=== PATIENT | female | born 1985 | race African-American/Black ===

== ENCOUNTER 2017-02-16 06:00 | Outpatient (CLI) | payer OTHER ==
[~2017-02-16] VITALS: Ht 167.6 cm; Wt 221.0 kg
[2017-02-16] MEDS ORDERED: ACET50TA PO (06:16)
[2017-02-16] MEDS ORDERED: PRENTAB9 PO (06:16)
[2017-02-16] MEDS ORDERED: TUMS500C PO (06:16)
== END 2017-02-16 07:00 | disposition home or self-care (01) ==
LOC: M LDO 06:00
PROVIDERS: ATTEND Obstetrics & Gynecology
DX: O47.03 False labor before 37 completed weeks of gestation, third trimester (principal); Z3A.33 33 weeks gestation of pregnancy; O30.043 Twin pregnancy, dichorionic/diamniotic, third trimester

== ENCOUNTER 2017-03-03 10:21 | Outpatient (CLI) | payer OTHER ==
[~2017-03-03] VITALS: Ht 170.2 cm; Wt 100.0 kg
[~2017-03-03 10:21] MED LIST: ACET50TA PO; PRENTAB9 PO; TUMS500C PO
[2017-03-03 10:49] VITALS: BP 126/56
[2017-03-03 13:44] VITALS: BP 106/58
== END 2017-03-03 14:20 | disposition home or self-care (01) ==
LOC: M LDO 10:21
PROVIDERS: ATTEND Student in an Organized Health Care Education/Training Program
DX: O47.03 False labor before 37 completed weeks of gestation, third trimester (principal); O30.043 Twin pregnancy, dichorionic/diamniotic, third trimester; Z3A.36 36 weeks gestation of pregnancy

== ENCOUNTER 2017-03-17 05:16 | Inpatient (IN) | payer OTHER ==
--- NOTE | 2017-03-02 16:51 | HPE ---
DATE OF ADMISSION: 03/17/2017 This lady is booked for elective repeat section and bilateral tubal ligation by Filesequiel clip for a satisfied parity. She is a 31-year-old 6 , para 2, LMP June 04, 2016, EDC March 31, 2017. HISTORY: Her past history is that she had a previous section in 2015 at 39 weeks of gestation because of breech presentation, 7 pounds 5 ounces. She had no progesterone. No monitoring. In September of 2014 at 39 weeks because of a short cervix and labor she had Indocin and progesterone. At that time she was in an AGD M1. She was on glyburide and an induction of labor at 39 weeks ; delivered a male, 8 pounds 11 ounces. This present history her risk factors are that she has diamniotic, dichorionic (YESICA) twins. She is AGD M1. She has had a previous section for breech and she has declined trial of labor after (TOLAC). Her lab values are O+, HIV negative, hepatitis negative, RPR negative, rubella immune. Varicella by lab was positive. Pap was normal. Urine was negative. Gonorrhea and chlamydia negative. 1-hour glucose was 128. GBS status is pending. PHYSICAL EXAMINATION: On physical examination today she is in no acute distress. She has a category one strip. She is normocephalic, atraumatic. Neck: Full range of motion. Pupils equal and reactive to light. Chest: Distal pulses are symmetric. No evidence of deep venous thrombosis (DVT), pulmonary embolism (PE) or superficial phlebitis. Lungs are clear bilaterally to bases. No wheezes or rhonchi. No CVA tenderness. Symphysis fundus height is 39. Twin A is breech with an MIGUEL A today of 11. Twin B was transverse lie with an MIGUEL A of 12. Both hearts are present and active, 140-150. The rest of the examination is unremarkable. She has no rashes, lesions or pruritus. No arthralgia or myalgia. No complaints of cough, wheezes, shortness of breath or dyspnea on exertion. No chest pain. She is not bleeding. Neuro complete. No incontinence, urgency or frequency. No nausea, vomiting, diarrhea or constipation. She has no diabetic issues. GYNECOLOGY HISTORY: Unremarkable. SURGICAL HISTORY: Primary section. FAMILY HISTORY: Noncontributory. SOCIAL HISTORY: She does not smoke, drink, abuse drugs and there is no domestic violence. After discussing risks and benefits of section, hemorrhage, infection, perforation, , reoperation, remote possibility of blood transfusion, remote possibility of hysterectomy; we then discussed the tubal ligation by Filshie clip with the failure rate of less than 1% ending in an IUP or an ectopic . Expressing understanding of both and all the risks, she signed and witnessed the consent form. Blood pressure today is 122/55. Symphysis fundus height is 38. She weighs 220 pounds. Her BMI is 34.46. In summary we have a diamniotic, dichorionic twin gestation for repeat section and satisfied parity. Edited: darian 03/22/2017 1101 MTDD
[~2017-03-17] VITALS: Ht 172.7 cm; Wt 99.8 kg
[2017-03-17] VITALS (11 sets, daily range): BP systolic 102–119; BP diastolic 50–57
[2017-03-17] MEDS ORDERED: BICITRA 30ML SOLN UDC PO ONE (05:30)
[2017-03-17] MEDS ORDERED: BUPIVACAINE HCL 0.25% 10 ML VIAL XX ONE (05:30)
[2017-03-17] MEDS ORDERED: ACETAMINOPHEN 650 MG SUPP PR ONE ×2 (05:30→08:00)
[2017-03-17] MEDS ORDERED: AZITHROMYCIN INJ 500 MG, VIAL MATE ADAPTER 1 EACH in D5W 250 ML IV ONE (05:30)
[2017-03-17] MEDS ORDERED: LR 1,000 ML IV ONE (05:30)
[2017-03-17] MEDS ORDERED: LR 1,000 ML IV SCH ×2 (05:30→10:00)
[2017-03-17 05:54] LABS: MEAN CORPUSCULAR HEMOGLOBIN 29.8 pg (27.0-33.0); MEAN CORPUSCULAR HGB CONC 32.5 g/dl (32.0-36.5); MEAN CORPUSCULAR VOLUME 91.8 fl (80.0-96.0); RED CELL DISTRIBUTION WIDTH 15.1 % (11.5-14.5); WHITE BLOOD COUNT 5.5 K/mm3 (4.0-10.0)
[2017-03-17] MEDS ORDERED: MORPHINE PRES-FREE INJ 10 MG/10 ML VIAL (J2274) As Ordered ONE (07:42)
[2017-03-17] MEDS ORDERED: NALOXONE INJ 0.4 MG/1 ML VIAL (J2310) IV PRN ×2 (07:53)
[2017-03-17] MEDS ORDERED: ONDANSETRON 4MG/2ML VIAL (J2405) IV PRN ×2 (07:53→10:00)
[2017-03-17] MEDS ORDERED: METOCLOPRAMIDE INJ 10MG/2ML VIAL (J2765) IV PRN (07:53)
[2017-03-17] MEDS ORDERED: BUPIVACAINE HCL 0.5% 10 ML VIAL SC ONE (08:00)
[2017-03-17] MEDS ORDERED: PHENYLephrine HCL 500 MCG/5 ML (100MCG/ML) SYRINGE (J2370) As Ordered ONE (08:38)
[2017-03-17] MEDS ORDERED: ePHEDrine SULFATE 25 MG/5 ML(5MG/ML) SYRINGE As Ordered ONE (08:38)
[2017-03-17] MEDS ORDERED: OXYTOCIN INJ 10 UNITS/ML VIAL (J2590) As Ordered ONE (08:38)
[2017-03-17] MEDS ORDERED: ONDANSETRON 4MG/2ML VIAL (J2405) As Ordered ONE (08:39)
[2017-03-17] MEDS ORDERED: KETOROLAC 60 MG/2 ML VIAL (J1885) As Ordered ONE (08:39)
[2017-03-17 08:52] LABS: CORD GAS ABE A -9.4; CORD GAS ABE V -5.2; CORD GAS HCO3 A 19.8 MEQ/L; CORD GAS HCO3 V 21.5 MEQ/L; CORD GAS O2 SAT A 62.6 %; CORD GAS O2 SAT V 72.4 %; CORD GAS PCO2 A 59.3 mmHg; CORD GAS PCO2 V 46.2 mmHg; CORD GAS PH A 7.142 UNITS; CORD GAS PH V 7.285 UNITS; CORD GAS PO2 A 31.3 mmHg; CORD GAS PO2 V 33.1 mmHg; CORD GAS SBC A 16.3 MEQ/L; CORD GAS SBC V 19.7 MEQ/L; CORD GAS TCO2 A 21.6 MEQ/L; CORD GAS TCO2 V 22.9 MEQ/L
[2017-03-17 08:55] LABS: CORD GAS ABE A -4.2; CORD GAS ABE V -5.3; CORD GAS HCO3 A 25.1 MEQ/L; CORD GAS O2 SAT A 30.5 %; CORD GAS O2 SAT V 82.6 %; CORD GAS PCO2 A 66.7 mmHg; CORD GAS PCO2 V 43.9 mmHg; CORD GAS PH A 7.193 UNITS; CORD GAS PH V 7.297 UNITS; CORD GAS PO2 A 17.3 mmHg; CORD GAS PO2 V 40.7 mmHg; CORD GAS SBC A 19.6 MEQ/L; CORD GAS SBC V 19.8 MEQ/L; CORD GAS TCO2 A 27.1 MEQ/L; CORD GAS TCO2 V 22.3 MEQ/L
[2017-03-17] MEDS ORDERED: OXYTOCIN DRIP 30 UNITS in APPROPRIATE DILUENT 1 EA IV SCH (09:31)
[2017-03-17] MEDS ORDERED: MEPERIDINE INJ 25 MG/ML VIAL (J2175) As Ordered ONE (09:39)
[2017-03-17] MEDS ORDERED: RHOGAM 300 MCG (1500 IU) INJ (J2790) IM SCH (09:45)
[2017-03-17] MEDS ORDERED: ANUSOL HC CREAM 30GM TOP PRN (09:45)
[2017-03-17] MEDS ORDERED: DOCUSATE SODIUM 100 MG CAP PO PRN (09:45)
[2017-03-17] MEDS ORDERED: MEASLES,MUMPS,RUBELLA VACCINE INJ (MMR-II) (90707) SC SCH (09:45)
[2017-03-17] MEDS ORDERED: MOM 30ML SUSPENSION UDC PO PRN (09:45)
[2017-03-17] MEDS ORDERED: METHYLERGONOVINE MALEATE 0.2 MG TAB PO PRN (09:45)
[2017-03-17] MEDS ORDERED: OXYTOCIN INJ 10 UNITS/ML VIAL (J2590) IV ONE (09:45)
[2017-03-17] MEDS ORDERED: OXYTOCIN 30 UNITS IN 0.9% NaCl 500ML IV BAG (J2590) As Ordered ONE (10:00)
[2017-03-17] MEDS ORDERED: KETOROLAC 30 MG/ML VIAL (J1885) IV PRN (10:00)
[2017-03-17] MEDS ORDERED: fentaNYL 100 MCG/2 ML INJECTION (J3010) IV PRN (10:00)
[2017-03-17] MEDS ORDERED: MEPERIDINE INJ 25 MG/ML VIAL (J2175) IV PRN (10:00)
[2017-03-17] MEDS ORDERED: METHYLERGONOVINE MALEATE 0.2 MG/ML VIAL (J2210) As Ordered ONE (10:02)
[2017-03-17] MEDS: OXYTOCIN DRIP 30 UNITS in APPROPRIATE DILUENT 1 EA IV SCH ×3 (10:30→11:30)
[2017-03-17] MEDS ORDERED: METHYLERGONOVINE MALEATE 0.2 MG/ML VIAL (J2210) IM ONE (10:30)
[2017-03-17] MEDS: METHYLERGONOVINE MALEATE 0.2 MG TAB PO SCH ×4 (12:16→23:24)
[2017-03-17] MEDS: NALBUPHINE HCL 10 MG/ML AMP (J2300) IV PRN ×2 (12:16→17:19)
[2017-03-17] MEDS: PERCOCET 5MG/325MG TAB PO PRN (13:29)
[2017-03-17] MEDS: IBUPROFEN 800 MG TAB PO SCH (16:11)
[2017-03-17] MEDS ORDERED: diphenhydrAMINE INJ 50MG/ML VIAL (J1200) IV PRN (18:30)
[2017-03-18] VITALS (7 sets, daily range): BP systolic 100–125; BP diastolic 56–66
[2017-03-18] MEDS: IBUPROFEN 800 MG TAB PO SCH ×3 (01:07→16:32)
[2017-03-18] MEDS: PERCOCET 5MG/325MG TAB PO PRN ×5 (01:28→20:54)
[2017-03-18] MEDS: METHYLERGONOVINE MALEATE 0.2 MG TAB PO SCH ×2 (02:59→06:35)
[2017-03-18 07:24] LABS: MEAN CORPUSCULAR HEMOGLOBIN 29.9 pg (27.0-33.0); MEAN CORPUSCULAR HGB CONC 32.4 g/dl (32.0-36.5); MEAN CORPUSCULAR VOLUME 92.5 fl (80.0-96.0); RED CELL DISTRIBUTION WIDTH 15.4 % (11.5-14.5); WHITE BLOOD COUNT 8.9 K/mm3 (4.0-10.0)
[2017-03-18] MEDS: PRENATAL VITAMINS CHEWABLE TABLET PO SCH (09:03)
[2017-03-19] MEDS: IBUPROFEN 800 MG TAB PO SCH ×2 (00:06→09:15)
[2017-03-19] MEDS: PERCOCET 5MG/325MG TAB PO PRN ×4 (01:04→13:13)
[2017-03-19 05:22] VITALS: BP 95/50
--- NOTE | 2017-03-19 08:36 | IPN ---
DATE: 03/18/2017 This lady is a 31-year-old, 6, now para 4, was admitted for repeat section and voluntary sterilization after satisfied parity. Section was for twin gestation Di/Di. She delivered a live twin A male, 6 pounds 13 ounces (3100 grams). of 9 and 9 at one and five minutes respectively. Arterial pH 7.14, base excess -9.4, venous pH 7.28, basis excess -5.2. Twin B was a female, 6 pounds 13 ounces (3078 grams). Arterial pH was 7.19, base excess -4.2, venous pH 7.29, base excess -5.3. Her admitting hemoglobin was 10.5, hematocrit 32.4 and platelets are 176. day #1, hemoglobin is pending. Presently, her blood pressure is 109/56, respirations 18, pulse 75. Temperature is 98.3. She had an episode with Nubain, which required Narcan and she immediately woke up and has been responsive and alert today. She has had Percocet with no issues. So we will continue with the Percocet. The rest the examination is unremarkable. We discussed phlebitis, cystitis, mastitis, endometritis and cellulitis, diet, exercise, pain management and perineal, breast and wound care. On examination today, she is normocephalic, atraumatic. Neck full range of motion. Pupils equal and reactive to light. She is oriented to three spheres. Breast-feeding. Distal pulses are symmetric. No evidence of deep venous thrombosis (DVT), pulmonary embolism (PE) or superficial phlebitis. Her reflexes are normal. There is no edema. Chest is clear to bases with no wheezes or rhonchi. No costovertebral angle (CVA) tenderness. Abdomen soft. Uterus 2 below. Incision is clean and dry. Perineum is intact. She has no rashes, lesions, pruritus. No arthralgia, myalgia. No complaint cough, wheezes, shortness of breath or dyspnea on exertion. No chest pain. No bleeding. Neuro complete. No incontinency or frequency. No nausea, vomiting, diarrhea or constipation. No diabetic issues. Past surgical history: She had a section for breech. She had ADGM1. She does not smoke, drink, abuse drugs. No domestic violence. She is to a soldier. In summary, we have a lady with satisfied parity, repeat section for twins Di/Di. Anticipate discharge tomorrow.
[2017-03-19] MEDS: PRENATAL VITAMINS CHEWABLE TABLET PO SCH (09:15)
[2017-03-19] MEDS ORDERED: COLA100C5 PO (15:20)
[2017-03-19] MEDS ORDERED: OXYC1TAB23 PO (15:20)
[2017-03-19] MEDS ORDERED: MOTR200T44 PO (15:20)
--- NOTE | 2017-03-28 11:48 | IPN ---
DATE: 03/17/2017 This patient and her has requested circumcision of their male infant. After discussing risks and benefits of circumcision, the medical and nonmedical indications, penile block and aftercare, expressed understanding penile block and aftercare, signed the witnessed consent form. We await the clearance by the haunted history tour guide.
--- NOTE | 2017-03-29 17:31 | RO ---
DATE OF PROCEDURE: 03/17/2017 PREOPERATIVE DIAGNOSES: Grand multiparity. Repeat section. Previous section. Satisfied parity. Dichorionic/diamniotic twin gestation. POSTOPERATIVE DIAGNOSES: Grand multiparity. Repeat section. Previous section. Satisfied parity. Dichorionic/diamniotic twin gestation. OPERATION PERFORMED: Repeat section for dichorionic/diamniotic twins and satisfied parity. Tubal ligation by Filshie clip. SURGEON: Angel Orona MD OB GYN PHYSICIAN ASSISTANT: Santosh Bowen MD ANESTHESIA: Spinal plus local anesthetic for intraperitoneal procedures. ESTIMATED BLOOD LOSS: 500 mL DESCRIPTION OF PROCEDURE: Under adequate anesthesia, prepped and draped in the supine position, Silva catheter in the bladder draining clear urine, acetaminophen suppository 1300 mg per rectum, sequentials on board, appropriate antibiotics preoperatively, a Pfannenstiel incision was made two fingerbreadths above the symphysis pubis, passing through the abdominal layers, securing hemostasis. Opening the peritoneal cavity, we reflected the bladder well down anteriorly. Artificial rupture of membranes (AROM) was done draining clear liquor. We delivered a live male , Baby A, weighing 6 pounds 13 ounces, 3100 grams, scores of 9 and 9 at one and five minutes, respectively. Arterial and venous pH were performed. Arterial pH was 7.14, base excess was -9.4. We then went ahead and did an AROM draining clear liquor. We delivered Baby B, a female weighing 6 pounds 13 ounces, 3078 grams, scores of 8 and 9 at one and five minutes, respectively. Arterial pH was 7.19, base excess -4.2, venous pH was 7.29, base excess -5.3. The placenta was manually removed. Three vessels were noted in each cord. Membranes and tissues were intact. The uterus contracted well down on Pitocin. We swept the uterine cavity for contents; there was nothing in the cavity. The lower segment was oversewn in the usual fashion in two layers and with instrument and pad count correct, we reviewed the anatomy; it appeared to be normal. No evidence of active bleeding. We then went ahead and asked the question regarding satisfied parity, if she wanted to continue along with the tubal ligation, and responded in the affirmative. Therefore, both tubes were exposed and visualized to the fimbriated ends. Bilateral Filshie clips applied circumferentially around the tubes. Good hemostasis was secured. Tubes and ovaries were replaced in the abdomen. We then went ahead and closed the peritoneum, interrupted for the fascia, irrigated the subcutaneous tissue, then interrupted sutures for subcutaneous, and then a subcutaneous stitch was placed with local anesthetic 0.25% Marcaine spray and Telfa were applied, and the patient was taken back to the recovery room in good condition.
== END 2017-03-19 16:25 | disposition home or self-care (01) | DRG 765 ==
LOC: M LDI 05:16 → EDUNIT# 07:30 → M OBS 11:40
PROVIDERS: ADMIT Obstetrics & Gynecology; ATTEND Obstetrics & Gynecology
PROC: 0UL70DZ Occlusion of Bilateral Fallopian Tubes with Intraluminal Device, Open Approach (ICD-10-PCS; 2017-03-17)
PROC: 10D00Z1 Extraction of Products of Conception, Low, Open Approach (ICD-10-PCS; principal; 2017-03-17 07:30)
DX: O34.211 Maternal care for low transverse scar from previous cesarean delivery (principal); O30.043 Twin pregnancy, dichorionic/diamniotic, third trimester; Z3A.38 38 weeks gestation of pregnancy; Z23 Encounter for immunization; O32.1XX1 Maternal care for breech presentation, fetus 1; O32.2XX2 Maternal care for transverse and oblique lie, fetus 2; O24.429 Gestational diabetes mellitus in childbirth, unspecified control; Z37.2 Twins, both liveborn

== ENCOUNTER 2017-03-31 20:12 | Emergency (ER) | payer OTHER ==
[~2017-03-31] VITALS: Ht 172.7 cm; Wt 89.6 kg
[2017-03-31 20:12] VITALS: BP 142/68
[~2017-03-31 20:12] MED LIST changes: +COLA100C5 PO; +MOTR200T44 PO; +OXYC1TAB23 PO
[2017-03-31] MEDS ORDERED: METOCLOPRAMIDE 10 MG TAB PO ONE (21:00)
[2017-03-31] MEDS ORDERED: MAGICMW MT ×3 (21:14→21:25)
[2017-03-31] MEDS ORDERED: REGL10TA6 PO ×3 (21:14→21:25)
[2017-03-31] MEDS ORDERED: MAGIC MOUTHWASH SUSPENSION BTL SS ONE (21:15)
== END 2017-03-31 21:29 | disposition home or self-care (01) ==
LOC: M ED 20:12
DX: R11.2 Nausea with vomiting, unspecified (principal); J02.9 Acute pharyngitis, unspecified; Z79.899 Other long term (current) drug therapy; Z88.8 Allergy status to other drugs, medicaments and biological substances

== ENCOUNTER 2017-04-27 10:38 | Emergency (ER) | payer OTHER ==
[~2017-04-27] VITALS: Ht 172.7 cm; Wt 86.1 kg
[~2017-04-27 10:38] MED LIST changes: +MAGICMW MT; +REGL10TA6 PO
[2017-04-27] MEDS ORDERED: BUPR100T3 (10:51)
[2017-04-27] MEDS ORDERED: diphenhydrAMINE INJ 50MG/ML VIAL (J1200) IV ONE (11:30)
[2017-04-27] MEDS ORDERED: METOCLOPRAMIDE INJ 10MG/2ML VIAL (J2765) IV ONE (11:30)
[2017-04-27] MEDS ORDERED: KETOROLAC 30 MG/ML VIAL (J1885) IV ONE (11:30)
[2017-04-27] MEDS ORDERED: NS 1,000 ML IV ONE (11:30)
[2017-04-27 11:57] LABS: BASO # 0.1 K/mm3 (0.0-0.2); BASO % 1.4 % (0.0-1.0); EOS # 0.4 K/mm3 (0.0-0.50); EOS % 8.4 % (0.0-3.0); LARGE UNSTAINED CELL # 0.1 K/mm3 (0.0-0.4); LARGE UNSTAINED CELL % 1.6 % (0.0-4.0); LYMPH # 1.8 K/mm3 (1.5-4.5); MEAN CORPUSCULAR HGB CONC 32.1 g/dl (32.0-36.5); MEAN CORPUSCULAR VOLUME 90.3 fl (80.0-96.0); MONO # 0.4 K/mm3 (0.0-0.8); MONO % 8.6 % (0.0-5.0); NEUTROPHILS # 1.8 K/mm3 (1.8-7.7); NEUTROPHILS % 41.1 % (36.0-66.0); PLATELET COUNT, AUTOMATED 237 k/mm3 (150-450); RED CELL DISTRIBUTION WIDTH 14.9 % (11.5-14.5); WHITE BLOOD COUNT 4.4 K/mm3 (4.0-10.0)
[2017-04-27 12:17] LABS: ALBUMIN 3.8 GM/DL (3.2-5.2); ALBUMIN/GLOBULIN RATIO 1.06 (1.00-1.93); ALKALINE PHOSPHATASE 94 U/L (45-117); ALT/SGPT 50 U/L (12-78); ANION GAP 10 MEQ/L (8-16); AST/SGOT 30 U/L (15-37); BILIRUBIN,DIRECT < 0.1 MG/DL (0.0-0.2); BILIRUBIN,TOTAL 0.3 MG/DL (0.2-1.0); BLOOD UREA NITROGEN 10 MG/DL (7-18); CALCIUM LEVEL 9.2 MG/DL (8.5-10.1); CARBON DIOXIDE LEVEL 23 MEQ/L (21-32); CHLORIDE LEVEL 109 MEQ/L (98-107); CREATININE FOR GFR 0.68 MG/DL (0.55-1.02); GLOMERULAR FILTRATION RATE > 60.0 (>60); GLUCOSE, FASTING 69 MG/DL (70-105); SODIUM LEVEL 142 MEQ/L (136-145); TOTAL PROTEIN 7.4 GM/DL (6.4-8.2); URIC ACID 3.7 MG/DL (2.6-6.0)
[2017-04-27 13:03] VITALS: BP 111/61
== END 2017-04-27 13:04 | disposition home or self-care (01) ==
LOC: M ED 10:38
DX: O99.355 Diseases of the nervous system complicating the puerperium (principal); G43.909 Migraine, unspecified, not intractable, without status migrainosus; Z88.6 Allergy status to analgesic agent
CPT/HCPCS: 80048; 80076; 81001; 83735; 84550; 85025; 96361; 96374; 96375; 99283; J1200; J1885; J2765

== ENCOUNTER 2017-11-06 22:43 | Emergency (ER) | payer OTHER ==
[2017-11-06] MEDS: KETOROLAC 60 MG/2 ML VIAL (J1885) IM (23:45)
== END 2017-11-07 01:03 | disposition home or self-care (01) ==
LOC: M ED 22:43
DX: S00.83XA Contusion of other part of head, initial encounter (principal); S29.012A Strain of muscle and tendon of back wall of thorax, initial encounter; W18.49XA Other slipping, tripping and stumbling without falling, initial encounter; Y92.139 Unspecified place military base as the place of occurrence of the external cause; M25.551 Pain in right hip; Z88.8 Allergy status to other drugs, medicaments and biological substances
CPT/HCPCS: J1885

== ENCOUNTER → 2018-11-18 | Outpatient (CLI) | payer OTHER ==
[~2018-11-18] MED LIST changes: -ACET50TA PO; +AMOX875T2 PO; +BUPR100T3; +MAPA500T2 PO
--- NOTE | 2018-11-21 13:33 | SLEEPCENT ---
DATE OF PROCEDURE: 11/18/2018 ORDERED BY: Diana Torres Nocturnal polysomnography was performed for evaluation of sleep physiology in this patient with a history of snoring and excessive somnolence. 7 hours and 45 minutes of data were reviewed. There were 303 minutes of sleep identified. Sleep latency was prolonged at 143 minutes. Rapid eye movement (REM) latency was prolonged at 167 minutes. Sleep architecture was fair with 2 REM cycles noted. Overall sleep efficiency was 66.6%. The electrocardiogram showed a sinus rhythm with an average heart rate of 56 beats per minute. Electroencephalogram (EEG) showed normal waveforms for awake and sleep. There were only 7 respiratory events identified of 10 seconds in duration or greater for an apnea-hypopnea index within normal limits at 1.4. Snoring was noted, however, respiratory related arousals occurred only once per hour. There was some limb activity noted in the EMG leads, but no trains of events. Limb movement arousal index was 5.3. Significant snoring was however noted over the entire study. IMPRESSION: Normal nocturnal polysomnography with snoring.
== END ==
LOC: M SLEEP 20:00
PROVIDERS: ATTEND Nurse Practitioner Adult Health
DX: R06.83 Snoring (principal)

== ENCOUNTER → 2021-07-09 | Outpatient (CLI) | payer OTHER ==
--- NOTE | 2021-07-09 16:17 | REP ---
INDICATION: BREAST LUMPS. COMPARISON: None TECHNIQUE: Real-time sonographic evaluation of right breast performed. FINDINGS: Sonographic evaluation of right breast performed between 11 and 1 o'clock at the site of a reported palpable lump which has been present for 4 years. No cystic or solid nodule is seen. IMPRESSION: BIRADS/ACR category 1, negative ultrasound right breast 11-1 o'clock. No cystic or solid nodule identified in the region of the reported palpable abnormality. RECOMMENDATION: Clinical correlation and follow-up recommended. A negative ultrasound should not deter biopsy if there is a clinically suspicious palpable mass present. <Electronically signed by Juve Lara > 07/09/21 0669
== END ==
LOC: M WHC 11:27
DX: N64.89 Other specified disorders of breast (principal)

== ENCOUNTER → 2021-09-16 | Outpatient (CLI) | payer OTHER ==
[~2021-09-16] MED LIST changes: +ISOVUE-370 76% 100ML VIAL As Ordered ONE; +SILVER NITRATE APPLICATOR As Ordered ONE
== END ==
LOC: M RADPRO 11:47
PROVIDERS: ATTEND Obstetrics & Gynecology
DX: N97.9 Female infertility, unspecified (principal)
CPT/HCPCS: 58340; 74740; Q9967

== ENCOUNTER 2023-03-14 09:26 | Observation (INO) | payer OTHER ==
[2023-03-14] VITALS (7 sets, daily range): BP systolic 125–144; BP diastolic 59–83; TEMP 97.9–98.4; O2SAT 95–97
[~2023-03-14] VITALS: Ht 172.7 cm; Wt 94.6 kg
[~2023-03-14 09:26] MED LIST changes: +ACE65ERTAB PO; +ACETAMINOPHEN *IV* 1,000 MG IV ONE; +BUPR-70; -BUPR100T3; +DULO1CAP4 PO; +GABAPENTIN 300 MG CAP PO ONE; +IRON65TA2 PO; -ISOVUE-370 76% 100ML VIAL As Ordered ONE; +LIDOCAINE 2% 100MG/5ML SDV (FOR ANES.) As Ordered ONE; +MIDAZOLAM INJ 2MG/2ML VIAL As Ordered ONE; +ROCURONIUM BROMIDE 50MG/5ML VIAL As Ordered ONE; -SILVER NITRATE APPLICATOR As Ordered ONE; +VITA500C24 PO; +ceFAZolin SOD 2 GM in IV 1 EA IV ONE; +fentaNYL 100 MCG/2 ML INJECTION As Ordered ONE; +naproxen PO; +propofoL 200 MG/20 ML VIAL As Ordered ONE
[2023-03-14 10:21] LABS: HEMATOCRIT 29.5 % (36.0-47.0); HEMOGLOBIN 8.7 g/dl (12.0-15.5); MEAN CORPUSCULAR HEMOGLOBIN 26.4 pg (27.0-33.0); MEAN CORPUSCULAR HGB CONC 29.5 g/dl (32.0-36.5); MEAN CORPUSCULAR VOLUME 89.4 fl (80.0-96.0); PLATELET COUNT, AUTOMATED 368 10^3/uL (150-450); WHITE BLOOD COUNT 4.3 10^3/uL (4.0-10.0)
[2023-03-14 10:48] LABS: ALBUMIN 3.4 G/DL (3.2-5.2); ALKALINE PHOSPHATASE 49 U/L (46-116); ALT/SGPT 21 U/L (7.0-40); AST/SGOT 18 U/L (<34); BILIRUBIN,TOTAL 0.4 MG/DL (0.3-1.2); BLOOD UREA NITROGEN 7 MG/DL (9-23); CALCIUM LEVEL 8.8 MG/DL (8.5-10.1); CARBON DIOXIDE LEVEL 25 MMOL/L (20-31); CHLORIDE LEVEL 108 MMOL/L (98-107); CREATININE FOR GFR 0.61 MG/DL (0.55-1.30); GLOMERULAR FILTRATION RATE > 60.0 (>60); GLUCOSE, FASTING 81 MG/DL (60-100); POTASSIUM SERUM 3.8 MMOL/L (3.5-5.1); SODIUM LEVEL 140 MMOL/L (136-145); TOTAL PROTEIN 6.7 G/DL (5.7-8.2)
[2023-03-14] MEDS ORDERED: LR 1,000 ML IV SCH ×2 (10:55→14:20)
[2023-03-14] MEDS ORDERED: ACETAMINOPHEN 1000MG 100ML IV BAG As Ordered ONE (11:40)
[2023-03-14] MEDS ORDERED: ONDANSETRON 4MG 2ML VIAL As Ordered ONE (11:40)
[2023-03-14] MEDS ORDERED: LACRILUBE (AKWA TEARS) OPHTH OINT 3.5GM As Ordered ONE (12:01)
[2023-03-14] MEDS ORDERED: fentaNYL 100 MCG/2 ML INJECTION As Ordered ONE (12:05)
[2023-03-14] MEDS ORDERED: TRANEXAMIC ACID 100 MG/ML 10ML VIAL As Ordered ONE (12:09)
[2023-03-14] MEDS ORDERED: VASOPRESSIN INJ 20UNITS/ML 1ML VIAL As Ordered ONE (12:09)
[2023-03-14] MEDS ORDERED: ROCURONIUM BROMIDE 50MG/5ML VIAL As Ordered ONE (12:16)
[2023-03-14] MEDS ORDERED: HYDROmorphone HCL 2MG/ML 1ML VIAL As Ordered ONE (13:04)
[2023-03-14] MEDS ORDERED: SUGAMMADEX SODIUM 500 MG/5 ML VIAL (BRIDION) As Ordered ONE (13:41)
[2023-03-14] MEDS ORDERED: KETOROLAC 60MG 2ML VIAL As Ordered ONE (13:42)
[2023-03-14] MEDS ORDERED: fentaNYL 100 MCG/2 ML INJECTION IV PRN (14:20)
[2023-03-14] MEDS ORDERED: ONDANSETRON 4MG 2ML VIAL IV PRN ×2 (14:20→14:25)
[2023-03-14] MEDS ORDERED: HYDROMORPHONE HCL 0.5 MG/ 0.5 ML SYRINGE IV PRN (14:20)
[2023-03-14] MEDS ORDERED: oxyCODONE 5MG TAB PO PRN ×3 (14:20→14:25)
[2023-03-14] MEDS ORDERED: KETOROLAC 30 MG/ML 1ML VIAL IV ONE (16:05)
[2023-03-14] MEDS: LR 1,000 ML IV SCH (18:35)
[2023-03-14] MEDS: KETOROLAC 30 MG/ML 1ML VIAL IV SCH (20:32)
[2023-03-14] MEDS: DOCUSATE SODIUM 100MG CAPSULE PO SCH (20:32)
[2023-03-15] MEDS: LR 1,000 ML IV SCH ×2 (02:15→07:47)
[2023-03-15] MEDS: KETOROLAC 30 MG/ML 1ML VIAL IV SCH ×2 (02:19→07:36)
[2023-03-15 04:00] VITALS: BP 138/64; TEMP 98.4; O2SAT 98
[2023-03-15 07:29] LABS: BASO % 0.1 % (0.0-1.0); HEMATOCRIT 25.9 % (36.0-47.0); HEMOGLOBIN 7.8 g/dl (12.0-15.5); LYMPH # 1.3 10^3/uL (1.5-5.0); LYMPH % 9.4 % (24.0-44.0); MEAN CORPUSCULAR HEMOGLOBIN 26.9 pg (27.0-33.0); MEAN CORPUSCULAR HGB CONC 30.1 g/dl (32.0-36.5); MEAN CORPUSCULAR VOLUME 89.3 fl (80.0-96.0); MONO # 1.3 10^3/uL (0.0-0.8); MONO % 9.5 % (2.0-8.0); NEUTROPHILS % 80.2 % (36.0-66.0); PLATELET COUNT, AUTOMATED 331 10^3/uL (150-450); WHITE BLOOD COUNT 13.8 10^3/uL (4.0-10.0)
[2023-03-15] MEDS: DOCUSATE SODIUM 100MG CAPSULE PO SCH (07:47)
[2023-03-15 08:00] VITALS: BP 147/91; TEMP 98.1; O2SAT 100
[2023-03-15] MEDS ORDERED: NAPR-832 PO (08:25)
[2023-03-15] MEDS ORDERED: HOME MED LIST COMPLETE! XX SCH (08:35)
[2023-03-15 11:58] VITALS: BP 130/64; TEMP 98.4; O2SAT 100
[2023-03-15] MEDS ORDERED: IRON SUCROSE 300 MG in NS 250 ML IV ONE (13:00)
[2023-03-15 13:45] VITALS: BP 138/80; TEMP 98; O2SAT 98
[2023-03-15] MEDS ORDERED: IBUPROFEN 800 MG TAB PO SCH (16:00)
== END 2023-03-15 16:25 | disposition home or self-care (01) ==
LOC: M OR 09:26 → INTOOBSV 09:26 → EDSTATUS 12:30 → M PED 18:46
PROVIDERS: ADMIT Obstetrics & Gynecology; ATTEND Obstetrics & Gynecology
DX: D25.1 Intramural leiomyoma of uterus (principal); D25.2 Subserosal leiomyoma of uterus; N93.9 Abnormal uterine and vaginal bleeding, unspecified; D64.9 Anemia, unspecified; F41.9 Anxiety disorder, unspecified; Z79.899 Other long term (current) drug therapy; Z88.5 Allergy status to narcotic agent
CPT/HCPCS: 36415; 58140; 80053; 81025; 85025; 85027; 86850; 87635; 88305; 96374; 96375; 96376; A6024; C1765; J0131; J0690; J1100; J1170; J1756; J1885; J2250; J2405; J2598; J3010